=== PATIENT | male | born 1950 | race Caucasian/White ===

== ENCOUNTER → 2018-06-23 05:53 | Day surgery (SDC) | payer OTHER, MEDICARE ==
[~2018-06-23] VITALS: Ht 177.8 cm; Wt 111.1 kg
--- NOTE | ~2018-06-23 | OP ---
PATIENT NAME: JOHANNY AGUILERA MEDICAL RECORD: [id number] :52 LOCATION:D.OPS ADMISSION DATE: SURGEON: ALDEN HIGGINBOTHAM MD DATE OF OPERATION: 06/23/2018 REFERRED BY: Dr. Jonelle Smith. SURGEON: Alden Higginbotham MD ANESTHESIA: Dr. Dumont with regional nerve block and MAC. OPERATION PERFORMED: Creation of a right wrist radiocephalic Lucia AV fistula. PREOPERATIVE NOTE: Mr. Aguilera is a 67-year-old white male patient from [place]. He has CKD IV and is expected to require dialysis. He was referred to me for creation of a preemptive AV fistula. He is brought to the operating room at this time with plans to make a Lucia wrist fistula on the right. Under regional block plus IV sedation, the patient was placed in supine position and the right upper extremity was prepped and draped in sterile manner. A Alisson drain was used as a proximal venous tourniquet and nitroglycerin paste was applied to the skin of the forearm and upper arm. I examined him with Duplex ultrasound and confirmed that the cephalic vein in the forearm was very suitable for creation of a fistula. The radial artery appears to have adequate flow, but is only about 2.5 mm in diameter and does have calcifications and may be "borderline." A longitudinal incision was made and through that the vein exposed and dissected from surrounding tissues. The tributary veins were divided between Hemoclips and Vicryl ligatures. The vein was ligated distally, transected and bevelled and flushed with heparinized saline and a vascular clamp applied proximally to prevent bleeding. The artery was exposed and many branches were divided with electrocautery. The artery was controlled with Silastic loops. There were areas of moderately severe calcification, but still I thought it was borderline and might possibly provide input for a good fistula. I think there is a very strong possibility. The artery was occluded with vascular clamps and an arteriotomy made. The artery was flushed with heparinized saline and I easily passed a 2.5 mm coronary artery dilator proximally as far as the antecubital space. I then performed an end-to-side, end of vein to side of artery anastomosis with running 7-0 Prolene. When completed and the occluding loops and clamps released, excellent flow developed within the fistula and the suture line was hemostatic. I did use some Surgicel powder to aid in hemostasis along with electrocautery and the rest of the wound as he was a bit oozy. The wound was closed with interrupted inverted 3-0 Vicryl and running intracuticular 4-0 Monocryl and the patient's fistula function deteriorated. I reopened the wound and really found no problems and noted that there was restored good flow in the fistula with a palpable thrill and a pulsatile continuous Doppler flow in the proximal radial artery and in the fistula and there was pulsatile flow in the distal radial artery. I irrigated the wound with saline and closed it with only 2 interrupted inverted 3-0 Vicryl for subq and closed the skin with running intracuticular 4-0 Monocryl and Dermabond glue. This closure was less tight than the initial one and the fistula continued to function well. The incision was dressed with Cavilon, Maxorb AG, and Tegaderm and he was awakened and taken to the recovery room. Blood loss during the procedure was about 5 cc. None was replaced. Sponges, OPERATIVE REPORT [id number] JOHANNY AGUILERA instruments, and needles were accounted for and no surgical specimen was submitted for histopathology. He will be discharged home today and scheduled to return to see me in my office next week. He is given a prescription for [facility] 5/325, #20, one p.o. q.4-6 hours p.r.n. for pain. He will continue his home medications, diet, and resume activities as tolerated. TRANSINT:[id number] Voice Confirmation ID: [id number] DOCUMENT ID: [id number] ALDEN HIGGINBOTHAM MD at 5810 CC: JONELLE SMITH [phone] DICTATION DATE: 06/23/18 1146 [employer] COORDINATOR: 06/23/18 1226 [facility] 06/23/18 [facility] [address] [place] [address]
[~2018-06-23 05:53] MED LIST: COREG25 MG; EYELEA; FISH OIL 1,0001 CA1 PO; FOLBIC RF TABL1 EACH PO; HUMULIN 70100 UNIT/1; HYDRALAZINE HCL50 MG; HYDROCODON-ACE1 EAC7 PO; JANUVIA50 MG; LASIX20 MG; ROCALTROL0.5 MCG; VALISONE 0.1 %15 GM; ZOCOR20 MG
[2018-06-23 06:11] LABS: BASOPHILS 0.5 % (0-2); EOSINOPHILS 3.6 % (0-7); HEMATOCRIT 36.6 % (42.0-54.0); HEMOGLOBIN 12.3 g/dL (13.5-17.5); IMMATURE GRANULOCYTES 0.4 % (0-5); LYMPHOCYTES 11.4 % (15-50); MCH 29.8 pg (26.0-34.0); MCHC 33.6 g/dL (31.0-37.0); MCV 88.6 fL (80.0-100.0); MEAN PLATELET VOLUME 9.7 fL (7.4-10.4); NEUTROPHILS 73.1 % (40-80); PLATELET COUNT 139 10x3/uL (130-400); RBC 4.13 10x6/uL (4.20-6.10); RDW 14.6 % (11.5-14.5); WBC 7.5 10x3/uL (4.8-10.8)
[2018-06-23 06:33] LABS: INR 1.12 (0.85-1.17); PROTIME 13.9 SECONDS (11.6-15.0)
[2018-06-23 06:35] LABS: ANION GAP 16.4 mmol/L (8-16); CALCIUM 8.5 mg/dL (8.5-10.1); CARBON DIOXIDE 24.3 mmol/L (21.0-32.0); CREATININE - SERUM 4.4 mg/dL (0.6-1.3); POTASSIUM - SERUM 4.7 mmol/L (3.5-5.1)
[2018-06-23 08:06] VITALS: BP 145/82; Ht 177.8 cm; Wt 111.1 kg
== END | disposition home or self-care (01) ==
LOC: D.OPS 05:53
PROVIDERS: Surgery
DX: N18.4 Chronic kidney disease, stage 4 (severe) (principal); Z01.812 Encounter for preprocedural laboratory examination

== ENCOUNTER 2018-08-29 09:40 | Day surgery (SDC) | payer MEDICARE, OTHER ==
[2018-08-28 15:48] LABS: EOSINOPHILS 3.6 % (0-7); HEMATOCRIT 33.4 % (42.0-54.0); HEMOGLOBIN 10.9 g/dL (13.5-17.5); IMMATURE GRANULOCYTES 0.3 % (0-5); LYMPHOCYTES 12.8 % (15-50); MCH 29.6 pg (26.0-34.0); MCHC 32.6 g/dL (31.0-37.0); MCV 90.8 fL (80.0-100.0); MEAN PLATELET VOLUME 10.1 fL (7.4-10.4); MONOCYTES 7.5 % (2-11); NEUTROPHILS 74.8 % (40-80); PLATELET COUNT 114 10x3/uL (130-400); RBC 3.68 10x6/uL (4.20-6.10); RDW 15.1 % (11.5-14.5); WBC 7.3 10x3/uL (4.8-10.8)
[2018-08-28 15:57] LABS: APTT 31.7 SECONDS (22.8-39.4); INR 1.17 (0.85-1.17); PROTIME 14.4 SECONDS (11.6-15.0)
[2018-08-28 16:30] LABS: ANION GAP 19.4 mmol/L (8-16); CALCIUM 8.2 mg/dL (8.5-10.1); CARBON DIOXIDE 17.4 mmol/L (21.0-32.0); CREATININE - SERUM 4.9 mg/dL (0.6-1.3); POTASSIUM - SERUM 4.8 mmol/L (3.5-5.1)
[~2018-08-29] VITALS: Ht 177.8 cm; Wt 108.9 kg
[2018-08-29 07:01] VITALS: BP 153/81; Ht 177.8 cm; Wt 108.9 kg
[~2018-08-29 09:40] MED LIST changes: +CARDURA4 MG PO; -COREG25 MG; +COREG25 MG PO; -HUMULIN 70100 UNIT/1; +HUMULIN 70100 UNIT/1 SC; -HYDRALAZINE HCL50 MG; +HYDRALAZINE HCL50 MG PO; -JANUVIA50 MG; +JANUVIA50 MG PO; -LASIX20 MG; +LASIX20 MG PO; +VITAMIN D31000 UNI2 PO; -ZOCOR20 MG; +ZOCOR20 MG PO
[2018-08-29] MEDS ORDERED: HYDROCODON-ACE1 EAC7 PO (11:11)
--- NOTE | 2018-09-01 16:17 | OP ---
PATIENT NAME: JOHANNY AGUILERA MEDICAL RECORD: [id number] :52 LOCATION:[facility] ADMISSION DATE: SURGEON: ALDEN HIGGINBOTHAM MD DATE OF OPERATION: 08/29/2018 REFERRED BY: Tristan Smith MD PREOPERATIVE DIAGNOSES: Chronic kidney disease V, abdominal obesity, and initial reducible umbilical hernia. POSTOPERATIVE DIAGNOSES: Chronic kidney disease V, abdominal obesity, and initial reducible umbilical hernia. OPERATION PERFORMED: Open repair of umbilical hernia with a small Ventralex ST hernia mesh, which was placed partially intraperitoneal, followed by laparoscopic implantation of a Merit straight coiled dual cuff dialysis catheter with subcutaneous extension with exit in the left upper quadrant, and omentopexy. 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 PREOPERATIVE NOTE: Mr. Aguilera is a very nice 68-year-old white male patient from [place], [place]. He has worsening renal insufficiency and needs to start peritoneal dialysis soon. He has slow to mature right radiocephalic AV fistula, which probably needs to have a fistulogram and intervention in the near future, but now the patient is brought to the hospital to the operating room for placement of a PD catheter. The exit site, which was marked preoperatively to the left and slightly above the level of the midline, in my opinion was not high enough as the patient was unable to actually see the proposed exit site and I chose a site in the upper portion of the left upper quadrant, which the patient could see to handle his wound care and dressing changes, etc. The site was marked on the skin, and the patient then in the operating room administered general endotracheal anesthesia and prepped and draped in a sterile manner. The umbilical hernia was approached first through a vertical periumbilical incision. The lower site for the peritoneal catheter insertion having been marked on the skin. The hernia sac was dissected from the surrounding tissues and from the overlying umbilical skin. The fascia was incised around it circumferentially and blunt dissection used to create a preperitoneal pocket to hold the mesh. I implanted a small Ventralex ST hernia mesh, which subsequently was proved to be partially intraperitoneal. The fascial defect was closed transversely with interrupted [id number] 2-0 Prolene sutures, which also incorporated the underlying mesh. A 5-mm port and laparoscope were then inserted through a small incision in the right upper quadrant and pneumoperitoneum established with carbon dioxide. During the procedure, two additional ports were placed, one in the right and one in the left lower quadrants. These were also 5-mm ports for instrumentation. A needle and guidewire were then passed from the primary incision and a long retrorectus preperitoneal tunnel created through which the Medcomp coil catheter was inserted. The tunnel directed the catheter nicely down into the pelvis and the length of the catheter proved to be satisfactory. The Dacron felt cuff was OPERATIVE REPORT [id number] JOHANNY AGUILERA buried within the rectus muscle just beneath the incision in the anterior rectus sheath. A pursestring suture of 0 Vicryl was placed. The stem cells were utilized to identify the site for an upper incision and the path of the catheter would take to the exit site. A small incision was made there and carried down to the midline fascia. A subcutaneous tunnel just anterior to the rectus was made and the superficial catheter segment and the deeper catheter segment both then trimmed to the proper lengths to fit after measuring the length of the tunnel. The catheters were then attached to the titanium connector taking care to attach the catheters as per the sole seamer's instructions and two 2-0 Prolene ties were placed around the catheters to secure them to the titanium connector and [id number] 2-0 Prolene ties were used to help keep the catheters from or coming off the connector. The catheters were each pushed up directly to the central flange without overlapping it. The catheter was pulled through the subcutaneous tunnel to the upper incision and the catheter was then pulled through a subcutaneous tunnel to a small incision at the proposed exit site, which left the superficial Dacron felt cuff about 3 cm deep and medial to the exit site. I had the patient in Trendelenburg position and noted a very large omentum following well down into the pelvis, which required an omentopexy. This was done by reefing the omentum up into the upper abdomen and holding it in place with 0 Vicryl sutures and inserted with a Sammy-Ainsley suture passer. Two sutures were used, each secured the omentum and the sutures were tied, which provided a nice omentopexy in the left upper quadrant. The catheter was then flushed and aspirated easily. It was then attached to a bag of IV fluid with 2000 units of heparin and approximately 1000 cc of solution was flushed into the abdomen and we then demonstrated that the fluid drained well. I removed about 700 cc, leaving about 300 cc of heparinized saline in the pelvis. The catheter was subsequently capped and coiled and placed under a sterile dressing. The laparoscope and laparoscopic ports and instruments were removed after examining again the abdominal contents. There was no evidence of any damage to any of the surrounding organs or structures. Again, the dialysis catheter appears to be in good position and there were no inguinal hernias seen. The wounds were infiltrated then with 0.25% Marcaine with epinephrine and the smaller stab incisions closed with interrupted inverted 3-0 Vicryl. The 2 larger incisions were closed with interrupted inverted 3-0 Vicryl and then running intracuticular 4-0 Monocryl. All incisions were sealed and closed further with glue and Maxorb AG and dressed with Tegaderm and Cavilon skin prep. The catheter at the exit site was dressed with a chlorhexidine Biopatch and further dry sterile dressings over the coiled catheter. The patient was then awakened and in stable condition taken to the recovery room. Blood loss during the procedure was about 5 cc. None was replaced. Sponges, instruments, and needles were accounted for. No drain was used. No surgical specimen was submitted for histopathology. TRANSINT:[id number] Voice Confirmation ID: [id number] DOCUMENT ID: [id number] Attention: Anel Hidalgo [facility] [phone] Robert Monzon [phone] OPERATIVE REPORT [id number] JOHANNY AGUILERA, ALDEN SERRANO at 1617 CC: ANEL HIDALGO RN, [facility] [id number] DICTATION DATE: 08/29/18 1134 RING MAKER: 08/29/18 1246 [facility] 08/29/18 [facility] [address] [place] [address]
== END 2018-08-29 17:00 | disposition home or self-care (01) ==
LOC: D.OPS 09:40
PROVIDERS: Surgery
DX: N18.5 Chronic kidney disease, stage 5 (principal); E66.9 Obesity, unspecified; K42.9 Umbilical hernia without obstruction or gangrene; Z01.812 Encounter for preprocedural laboratory examination